=== PATIENT | female | born 1980 ===

== ENCOUNTER 2022-07-11 14:15 | Inpatient (IN) | payer OTHER ==
[2022-07-11] MEDS ORDERED: hydrOXYzine HCL 50 MG/ML 1 ML VIAL IM PRN (14:33)
[2022-07-11] MEDS ORDERED: MAGNESIUM HYDROXIDE 2,400 MG/10 ML CUP PO PRN (14:33)
[2022-07-11] MEDS ORDERED: OLANZapine 5 MG TAB PO PRN (14:33)
[2022-07-11] MEDS ORDERED: ACETAMINOPHEN TAB 325 MG TAB PO PRN (14:33)
[2022-07-11] MEDS ORDERED: MAG HYDROX/AL HYDROX/SIMETH 30 ML CUP PO PRN (14:33)
[2022-07-11] MEDS ORDERED: hydrOXYzine pamoate 25 MG CAP PO PRN (14:33)
[2022-07-11] MEDS ORDERED: OLANZapine 10 MG VIAL IM PRN (14:33)
[2022-07-11] MEDS ORDERED: MAG HYDROX/AL HYDROX/SIMETH 355 ML BOTTLE PO PRN (14:46)
--- NOTE | 2022-07-12 02:10 | P.PN ---
Progress Note - Text Progress Note Date: 07/12/22 Patient refused evaluation
[2022-07-12] MEDS: NICOTINE GUM (POLACRILEX) 2 MG GUM BUCCAL PRN ×4 (07:24→19:10)
[2022-07-12] MEDS ORDERED: NICOTINE 14MG/24HR PATCH TRANSDERM SCH (09:00)
[2022-07-12] MEDS: PANTOPRAZOLE 40 MG TABLET PO SCH (09:03)
[2022-07-12 09:44] LABS: Basophils # (A) 0.1 k/uL (0-0.2); Basophils % (A) 1 %; Eosinophils # (A) 0.2 k/uL (0-0.7); Eosinophils % (A) 2 %; HCT 47.7 % (34.0-46.0); HGB 15.7 gm/dL (11.4-16.0); Lymphocytes # (A) 2.5 k/uL (1.0-4.8); Lymphocytes % (A) 26 %; MCH 31.4 pg (25.0-35.0); MCHC 32.8 g/dL (31.0-37.0); MCV 95.8 fL (80.0-100.0); Mean Platelet Volume 7.5; Monocytes # (A) 0.5 k/uL (0-1.0); Monocytes % (A) 5 %; Neutrophils # (A) 6.1 k/uL (1.3-7.7); Neutrophils % (A) 63 %; Platelet Count 379 k/uL (150-450); RBC 4.98 m/uL (3.80-5.40); RDW 12.4 % (11.5-15.5); WBC 9.7 k/uL (3.8-10.6)
[2022-07-12 09:54] LABS: ALT 13 U/L (4-34); AST 15 U/L (14-36); African American GFR (CKD) >90 (>60 ml/min/1.73 sqM); Albumin 4.9 g/dL (3.5-5.0); Alkaline Phosphatase 80 U/L (38-126); Anion Gap 7 mmol/L; Bilirubin, Delta 0.3 mg/dL (0.0-0.2); Bilirubin,Unconjugated 0.5 mg/dL (0.0-1.1); Blood Urea Nitrogen 18 mg/dL (7-17); Calcium 9.3 mg/dL (8.4-10.2); Carbon Dioxide 27 mmol/L (22-30); Chloride 103 mmol/L (98-107); Glucose 117 mg/dL (74-99); Non-African American GFR(CKD) 89 (>60 ml/min/1.73 sqM); Potassium 4.8 mmol/L (3.5-5.1); Sodium 137 mmol/L (137-145); Total Bilirubin 0.8 mg/dL (0.2-1.3); Total Protein 7.6 g/dL (6.3-8.2)
[2022-07-12] MEDS ORDERED: MELATONIN 3 MG TABLET PO PRN (13:54)
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
[2022-07-12 15:32] LABS: Chol/HDL Ratio 5.41 Ratio; LDL Cholesterol,Calculated 165.7 mg/dL (0.0-131.0)
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
[2022-07-13] MEDS: NICOTINE GUM (POLACRILEX) 2 MG GUM BUCCAL PRN ×4 (06:50→20:25)
[2022-07-13] MEDS: ESCITALOPRAM 10 MG TAB PO SCH (09:04)
[2022-07-13] MEDS: PANTOPRAZOLE 40 MG TABLET PO SCH (09:04)
[2022-07-13] MEDS ORDERED: diphenhydrAMINE 50 MG/ML 1 ML VIAL IM STA (13:20)
[2022-07-13] MEDS ORDERED: diphenhydrAMINE 50 MG CAP PO STA (16:09)
--- NOTE | 2022-07-13 20:07 | P.PN ---
Progress Note - Text Progress Note Date: 07/13/22 Interval History: Patient was seen bedside and was directable and agreeable to speak with resume writer in the office. Of note, patient consumed eggs during her lunch. She reported feeling like her throat was closing. She was given Benadryl with rapid improvement in symptoms. Patient did not take Lexapro because she does not want to trigger potential ALLERGY. She states that she would like to discuss the Lexapro with her outpatient primary care provider whom she has known for 20 years. She discussed the circumstances leading to her hospitalization and was more future oriented. At this time patient denies any suicidal or homical ideations, intent or plan. Patient denies any auditory, visual hallucinations and denies any paranoia or delusions. Patient denies any side effects from the medications and has been compliant with meds. Mental Status Exam: General Appearance: Patient appears to be short in stature, older than stated age is alert, directable, and attempts to cooperate. Patient appears to have fair hygiene and grooming. Behavior: Patient is seated without any agitated behavior. Argumentative at times above medications. Speech: Patient's speech is fluent and nonpressured. Mood/Affect: Patient reports their mood is depressed, affect is congruent and constricted. Suicidality/Homicidality: Patient denies having any homicidal ideation intent or plan. Denies any suicidal ideations intent or plan Perceptions: Patient denies any visual hallucinations and denies any auditory hallucinations Though content/process: There is no evidence of any delusional thought content and thought process is linear and goal-directed. Patient claims that the petition has false claims on it. Focus on discharge. Not wanting medications. Memory and concentration: AOX3, grossly intact for the purposes of this session. Can spell "WORLD" backwards Judgment and insight: poor Assessment Depressive disorder unspecified Cannabis use disorder Nicotine dependence Plan: -Patient is admitted under voluntary status to MHU for stabilization of psychiatric symptoms and safety. Patient has signed adult voluntary form and is placed in patient's chart. -Medications : lexapro 10 mg daily for anxiety/mood (encouraged compliance), melatonin 6 mg qhs prn for insomnia. -Ativan and Haldol PRN for agitation/aggression -Patient was counselled on substance abuse and desired to cut back on use -Patient was informed of the risks, benefits and side effects of the medication and patient verbally consented to taking the medications. Patient signed med consent form and was placed in chart. -Internal Medicine consult to perform medical evaluation and physical. -NRT - nicotine patch -SW on board for discharge planning. Encourage patient to participate in groups to work on coping skills. SW to gather further collateral from family and other contacts. Likely discharge early next week as patient plans on staying at a motel/hotel and filing for divorce. She wants to move out of the house she is currently in.
[2022-07-14] MEDS: NICOTINE GUM (POLACRILEX) 2 MG GUM BUCCAL PRN ×5 (06:53→21:44)
[2022-07-14] MEDS: ESCITALOPRAM 10 MG TAB PO SCH ×3 (08:49→09:28)
[2022-07-14] MEDS: PANTOPRAZOLE 40 MG TABLET PO SCH (08:49)
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
[2022-07-14] MEDS ORDERED: diphenhydrAMINE 50 MG CAP PO STA (18:07)
[2022-07-14] MEDS ORDERED: diphenhydrAMINE 25 MG CAP PO PRN (18:23)
[2022-07-15 05:16] VITALS: BP 106/59; PULSE 70; RESP 18; TEMP 97.9
[2022-07-15] MEDS: NICOTINE GUM (POLACRILEX) 2 MG GUM BUCCAL PRN (08:49)
[2022-07-15] MEDS: ESCITALOPRAM 10 MG TAB PO SCH (08:49)
[2022-07-15] MEDS: PANTOPRAZOLE 40 MG TABLET PO SCH (08:50)
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
== END 2022-07-15 11:40 | disposition home or self-care (01) | DRG 881 ==
LOC: UNDOADMIN 14:15 → 3MHU 14:15
PROVIDERS: ADMIT Psychiatry & Neurology Psychiatry; ATTEND Psychiatry & Neurology Psychiatry
DX: F32.A Depression, unspecified (principal); F12.90 Cannabis use, unspecified, uncomplicated; F17.210 Nicotine dependence, cigarettes, uncomplicated; F41.9 Anxiety disorder, unspecified; H90.5 Unspecified sensorineural hearing loss; Z79.899 Other long term (current) drug therapy
CPT/HCPCS: 80053; 80061; 82248; 83036; 84443; 85025